=== PATIENT | male | born 1945 | race Caucasian/White ===

== ENCOUNTER 2018-03-26 13:55 | Emergency (ER) | payer OTHER, MEDICARE ==
[~2018-03-26] VITALS: Ht 165.1 cm; Wt 68.4 kg
[~2018-03-26 13:55] MED LIST: ASACOL400 MG PO; ATENOLOL25 MG PO; BABY ASPIRIN81 M1 PO; CADUET PO; D-VERT25 MG PO; MULTIVITAMIN1 EAC1 PO; PREDNISONE5 MG PO; PREVACID15 MG PO; PREVACID30 MG PO; TUMS500 MG PO; VITAMIN C W/R1000 MG PO
[2018-03-26 14:38] LABS: BASOPHIL (%) 0.6 % (0-1); BASOPHIL COUNT 0.1 K/uL (0-0.1); EOSINOPHIL (%) 3.2 % (0-5); EOSINOPHIL COUNT 0.3 K/uL (0-0.3); HEMATOCRIT 35.8 % (38.0-50.0); HEMOGLOBIN 11.8 G/DL (12.5-16.6); IMMATURE GRANULOCYTE (%) 0.2 % (0.0-0.7); LYMPHOCYTE (%) 25.1 % (15-42); LYMPHOCYTE COUNT 2.1 K/uL (1.0-2.8); MCH 30.7 PG (29.0-34.0); MCV 93.2 FL (86-99); MONOCYTE (%) 10.5 % (3-12); MONOCYTE COUNT 0.9 K/uL (0-0.8); NEUTROPHIL (%) 60.4 % (45-76); NEUTROPHIL COUNT 4.9 K/uL (1.8-6.4); PLATELET COUNT 269 K/uL (156-360); RBC DIS.WIDTH-CV 12.8 % (11.8-14.6); RBC DIS.WIDTH-SD 43.5 % (39-53); RED BLOOD COUNT 3.84 M/uL (4.00-5.50); WHITE BLOOD COUNT 8.2 K/uL (4.1-10.2)
[2018-03-26 14:46] LABS: CHLORIDE 105 mEq/L (99-109); POTASSIUM 4.2 mEq/L (3.7-5.4); SODIUM 138 mEq/L (136-147)
[2018-03-26 14:48] LABS: GLUCOSE 96 mg/dL (70-99)
[2018-03-26 14:52] LABS: CREATININE 1.2 mg/dL (0.6-1.3); GFR ESTIMATE (CALCULATED) > 59 mL/min/ (58.99-99999)
[2018-03-26 14:53] LABS: UREA NITROGEN (BUN) 27 mg/dL (9-23)
[2018-03-26 18:29] VITALS: BP 175/84
== END 2018-03-26 18:32 | disposition home or self-care (01) ==
LOC: EME 13:55 → RME 13:55
PROVIDERS: Physician Assistant
DX: Q31.3 Laryngocele (principal); I10 Essential (primary) hypertension; E78.5 Hyperlipidemia, unspecified; Z88.0 Allergy status to penicillin; Z79.82 Long term (current) use of aspirin
CPT/HCPCS: 70491; 80048; 85025; 99281; 99284; J7030